=== PATIENT | male | born 1995 | race American Indian/Alaskan Native ===

== ENCOUNTER 2018-12-09 11:18 | Emergency (ER) | payer OTHER ==
[~2018-12-09] VITALS: Ht 185.4 cm; Wt 66.7 kg
[~2018-12-09 11:18] MED LIST: AZITHROMYC100 MG/5 M PO; BENADRYL25 MG PO; DAY TIME CO5 MG/5 ML PO
--- NOTE | 2018-12-10 14:00 | EKG ---
[facility] [address] [facility] [facility] [place], [place] [address] Signed Normal sinus rhythm RSR' or QR pattern in V1 suggests right ventricular conduction delay Cannot rule out Anterior infarct , age undetermined Abnormal ECG No previous ECGs available Confirmed by ISELA RUSSO DO ([id number]) on 12/10/2018 2:00:36 PM Electronically Signed By: ISELA RUSSO DO 12/10/18 1400 PATIENT NAME: NAHOMY PARIS Electrocardiogram DATE OF : [birth year] PHYSICIAN: ISELA RUSSO DO REPORT #: [id number] REPORT IS CONFIDENTIAL AND NOT TO BE RELEASED WITHOUT AUTHORIZATION
== END 2018-12-09 13:15 | disposition home or self-care (01) ==
LOC: ED 11:18
DX: R55 Syncope and collapse (principal); Z90.49 Acquired absence of other specified parts of digestive tract
CPT/HCPCS: 71045; 80053; 85025; 93005; 93010; 99284-25

== ENCOUNTER 2020-05-01 00:49 | Emergency (ER) | payer OTHER ==
[~2020-05-01] VITALS: Ht 185.4 cm; Wt 77.1 kg
--- OUTSIDE RECORDS SUMMARY | 2020-05-01 00:52 | XMS ---
PreManage Notification: NAHOMY PARIS Security Software Implementation Project Manager Events No recent Security Events currently on file CRITERIA MET - [facility] - Has Care Guidelines CARE PROVIDERS MACARENA COTA Nurse Practitioner: Family 01/03/2019-Current PHONE: [phone] Luis Alberto has no Care Guidelines for this patient. Care History Medical/Surgical 01/03/2019 [facility] \T\middot;\T\nbsp; PATIENT IS A [employer] MEMBER. \T\middot;\T\nbsp; PLEASE REFER PATIENT TO [facility] FOR NON EMERGENT MEDICAL NEEDS. \T\middot;\ T\nbsp; [facility] CAN SEE PATIENTS SAME DAY FOR APTS IF PATIENT CALLS FIRST THING IN THE MORNING. E.D. VISIT COUNT (12 MO.) 1 [facility] TOTAL 1 NOTE: Visits indicate total known visits. ED/UCC VISIT TRACKING (12 MO.) 05/01/2020 00:[address] [facility] [place] TYPE: Emergency COMPLAINT: - HEAD INJ INPATIENT VISIT TRACKING (12 MO.) No inpatient visits to display in this time frame [email or web address]
== END 2020-05-01 01:45 | disposition home or self-care (01) ==
LOC: ED 00:49
DX: S01.81XA Laceration without foreign body of other part of head, initial encounter (principal); W22.8XXA Striking against or struck by other objects, initial encounter
CPT/HCPCS: 12011; 99282-25

== ENCOUNTER 2020-06-06 00:01 | Emergency (ER) | payer OTHER ==
[~2020-06-06] VITALS: Ht 185.4 cm; Wt 75.0 kg
--- OUTSIDE RECORDS SUMMARY | 2020-06-06 00:06 | XMS ---
PreManage Notification: NAHOMY PARIS Security [employer] Events No recent Security Events currently on file CRITERIA MET - [facility] - Has Care Guidelines CARE PROVIDERS MACARE[employer] C[employer] Nurse Practitioner: Family 01/03/2019-Current PHONE: [phone] Name Unknown Clinic/Center 05/02/2020-Current PHONE: [phone] Luis Alberto has no Care Guidelines for this patient. Care History Medical/Surgical 01/03/2019 [facility] - PATIENT IS [facility] ELIGIBLE, \T\middot;\T\nbsp; PLEASE REFER PATIENT TO [facility] FOR NON EMERGENT MEDICAL NEEDS. \T\middot;\T\nbsp; [facility] CAN SEE PATIENTS SAME DAY FOR APTS IF PATIENT CALLS FIRST THING IN THE MORNING. E.D. VISIT COUNT (12 MO.) 2 [facility] TOTAL 2 NOTE: Visits indicate total known visits. ED/UCC VISIT TRACKING (12 MO.) 06/06/2020 00:03 [facility] [place] TYPE: Emergency COMPLAINT: - LT HAND INJURY 05/01/2020 00:49 [facility] [place] TYPE: Emergency COMPLAINT: - HEAD INJ DIAGNOSES: - Laceration without foreign body of other part of head, initial encounter - Striking against or struck by other objects, initial encounter INPATIENT VISIT TRACKING (12 MO.) No inpatient visits to display in this time frame [id number]
== END 2020-06-06 01:04 | disposition home or self-care (01) ==
LOC: ED 00:01
DX: S61.412A Laceration without foreign body of left hand, initial encounter (principal); W22.8XXA Striking against or struck by other objects, initial encounter
CPT/HCPCS: 12002; 73130; 99283-25

== ENCOUNTER 2022-07-30 21:51 | Emergency (ER) | payer OTHER ==
[~2022-07-30] VITALS: Ht 185.4 cm; Wt 77.1 kg
--- NOTE | ~2022-07-30 | EKG ---
[facility] [address] [facility] [place], [place] [address] Draft EKG completed, results pending confirmation PATIENT NAME: NAHOMY PARIS Electrocardiogram DATE OF : [birth year] PHYSICIAN: PRELIMINARY REPORT #: [id number] REPORT IS CONFIDENTIAL AND NOT TO BE RELEASED WITHOUT AUTHORIZATION
[2022-07-30] MEDS ORDERED: LEVSIN0.125 MG PO (23:14)
[2022-07-30] MEDS ORDERED: VISTARIL25 MG PO (23:14)
== END 2022-07-30 23:44 | disposition home or self-care (01) ==
LOC: ED 21:51
DX: F41.0 Panic disorder [episodic paroxysmal anxiety] (principal); J45.909 Unspecified asthma, uncomplicated
CPT/HCPCS: 36415; 80053; 84443; 85025; 93005; 93010; 96374; 96375; 99284-25; J1885

== ENCOUNTER 2022-08-18 18:25 | Emergency (ER) | payer OTHER ==
[~2022-08-18] VITALS: Ht 185.4 cm; Wt 67.4 kg
[~2022-08-18 18:25] MED LIST changes: +LEVSIN0.125 MG PO; +VISTARIL25 MG PO
--- OUTSIDE RECORDS SUMMARY | 2022-08-18 18:32 | XMS ---
PreManage Notification: NAHOMY PARIS Security Grades 9 12 [employer] Events 1 event(s) in the past 18 months Most recent security events: Elopement at [facility] 05/09/2022 14:08 - Patient eloped before treatment completed. - Patient with suicidal and/or homicidal ideations eloped. - Patient eloped with IV in place. Details: Patient LWBS. CRITERIA MET - [facility] - 2 Visits in 30 Days CARE PROVIDERS MADAN RENEE Physician Assistant [employer] Current PHONE: Unknown [employer]NA COTA Nurse Practitioner: 01/03/2019-Current PHONE: [phone] [facility] 05/02/2020-[facility] PHONE: [phone] Luis Alberto has no Care Guidelines for this patient. Care History Medical/Surgical 01/03/2019 [facility] - PATIENT IS POLO ANGELA, \T\middot;\T\nbsp; PLEASE REFER PATIENT TO [facility] FOR NON EMERGENT MEDICAL NEEDS. \T\middot;\T\nbsp; [facility] CAN SEE PATIENTS SAME DAY FOR APTS IF PATIENT CALLS FIRST THING IN THE MORNING. E.D. VISIT COUNT (12 MO.) 3 [facility]. TOTAL 3 NOTE: Visits indicate total known visits. ED/UCC VISIT TRACKING (12 MO.) 08/18/2022 18:26 [facility] [place] TYPE: Emergency COMPLAINT: - ALCOHOL WITHDRAWAL 07/30/2022 21:51 [facility] [place] TYPE: Emergency COMPLAINT: - ANXIETY DIAGNOSES: - Panic disorder [episodic paroxysmal anxiety] - Anxiety disorder, unspecified - Unspecified asthma, uncomplicated 05/09/2022 14:08 [facility] [place] TYPE: Emergency COMPLAINT: - DIFF BREATHING INPATIENT VISIT TRACKING (12 MO.) No inpatient visits to display in this time frame [email or web address]
[2022-08-18] MEDS ORDERED: ONDANSETRON ODT8 MG PO (20:30)
== END 2022-08-18 20:40 | disposition home or self-care (01) ==
LOC: ED 18:25
DX: F10.239 Alcohol dependence with withdrawal, unspecified (principal)
CPT/HCPCS: 99284; A9270

== ENCOUNTER 2023-12-13 07:44 | Emergency (ER) | payer OTHER ==
[~2023-12-13] VITALS: Ht 185.4 cm; Wt 68.0 kg
[~2023-12-13 07:44] MED LIST changes: +CHLORDIAZEPOXID25 MG PO; +HYDROCODON-ACE1 EA10 PO; +ONDANSETRON ODT8 MG PO; +TRAZODONE HCL50 MG PO
[2023-12-13 08:34] VITALS: BP 132/100
== END 2023-12-13 08:34 | disposition other institution, planned readmission (95) ==
LOC: ED 07:44
DX: T50.901A Poisoning by unspecified drugs, medicaments and biological substances, accidental (unintentional), initial encounter (principal); R42 Dizziness and giddiness; J45.909 Unspecified asthma, uncomplicated; Z53.21 Procedure and treatment not carried out due to patient leaving prior to being seen by health care provider
CPT/HCPCS: 99284

== ENCOUNTER 2024-11-11 20:42 | Emergency (ER) | payer OTHER | END 2024-11-12 01:49 | disposition home or self-care (01) | LOC: ED 20:42 | DX: F10.90 Alcohol use, unspecified, uncomplicated (principal); J45.909 Unspecified asthma, uncomplicated ==

== ENCOUNTER 2025-05-15 17:29 | Emergency (ER) | payer OTHER ==
[~2025-05-15] VITALS: Ht 185.4 cm; Wt 79.8 kg
[2025-05-15 21:02] LABS: BASOPHILS 0.6 % (0.2-1.2); EOSINOPHILS 1.0 % (0.8-7.0); LYMPHOCYTES 27.4 % (21.8-53.1); MCH 31.1 PG (25.7-32.2); MCHC 34.4 g/dL (32.3-36.5); MCV 90.4 fL (79.0-92.2); MONOCYTES 8.7 % (5.3-12.2); NEUTROPHILS 61.9 % (34.0-67.9); RBC 4.60 M/uL (4.63-6.08)
[2025-05-15 21:14] LABS: INR 1.0 (0.80-1.30); PROTIME 12.5 Sec (11.2-14.2)
[2025-05-15 21:22] LABS: ALT (SGPT) 63 U/L (14-59); AST (SGOT) 49 U/L (15-37); GLOMERULAR FILTRATION RATE,EST 117 mL/min (>60); PROTEIN, TOTAL 8.1 g/dL (6.4-8.2); UREA NITROGEN 9 mg/dL (7-18)
[2025-05-15] MEDS ORDERED: CYCLOBENZAPRINE10 MG PO (23:11)
[2025-05-15] MEDS ORDERED: CYCLOBENZAPRINE HCL 10 MG HOME.PACK PO ONE (23:15)
[2025-05-15 23:30] VITALS: BP 126/80
--- NOTE | 2025-05-16 21:45 | EKG ---
[facility] [address] [place] [address] Signed Normal sinus rhythm Left axis deviation Incomplete right bundle branch block Minimal voltage criteria for LVH, may be normal variant ( R in aVL ) Abnormal ECG When compared with ECG of 08-SEP-2023 16:38, Minimal criteria for Anterior infarct are no longer present Confirmed by Jossie Chavez MD () on 05/16/2025 9:44:58 PM Electronically Signed By: JOSSIE CHAVEZ MD 05/16/25 2145 PATIENT NAME: NAHOMY PARIS JAIME Electrocardiogram DATE OF : [birth year] PHYSICIAN: JOSSIE CHAVEZ MD REPORT #: [id number] REPORT IS CONFIDENTIAL AND NOT TO BE RELEASED WITHOUT AUTHORIZATION
== END 2025-05-15 23:30 | disposition home or self-care (01) ==
LOC: ED 17:29
PROVIDERS: Family Medicine
DX: R07.89 Other chest pain (principal); J45.909 Unspecified asthma, uncomplicated; Z91.030 Bee allergy status
CPT/HCPCS: 36415; 71045; 80053; 83735; 84484; 85025; 85379; 85610; 93005; 93010; 99285-25